=== PATIENT | female | born 1950 | race Caucasian/White ===

== ENCOUNTER 2017-02-18 04:26 | Emergency (ER) | payer MEDICARE, BC ==
[~2017-02-18] VITALS: Ht 165.1 cm; Wt 51.0 kg
[2017-02-18 04:31] VITALS: Ht 165.1 cm; Wt 51.0 kg
[2017-02-18] MEDS ORDERED: BEN25 PO (05:35)
[2017-02-18] MEDS ORDERED: DOXY100T20 PO (05:35)
--- NOTE | 2017-02-23 23:29 | ERD ---
ER Documentation Chief Complaint Date/Time DATE: 02/23/17 TIME: 23:26 Chief Complaint bug bite to left hand yesterday. +pain, +swelling HPI Patient is a 66-year-old female presenting to the emergency department with complaints of bug bite to her left hand which occurred yesterday. Associated symptoms include pain and swelling. Symptoms are worsening and constant. She states she has noticed redness spreading from her hand proximally up her left arm. She denies fevers, chills, or other symptoms at this time. ROS All systems reviewed and are negative except as per history of present illness. Medications Home Meds Active Scripts Diphenhydramine Hcl* (Benadryl*) 25 Mg Cap, 25 MG PO Q6 Y for ITCHING, #30 CAP Prov:EARLENE GARCIA PA-C 02/18/17 Doxycycline Hyclate* (Doxycycline Hyclate*) 100 Mg Tablet.dr, 100 MG PO BID for 10 Days, #20 TAB Prov:EARLENE GARCIA PA-C 02/18/17 Allergies Allergies: Coded Allergies: No Known Allergy (Unverified , 02/18/17) PMhx/Soc Medical and Surgical Hx: pt denies Medical Hx History of Surgery: Yes (Right hand surgery) Hx Alcohol Use: No Hx Substance Use: No Hx Tobacco Use: Yes Smoking Status: Current every day smoker Physical Exam Physical Exam Const: Nontoxic, well-appearing female in no acute distress. Head: Atraumatic Eyes: Normal Conjunctiva ENT: Normal External Ears, Nose and Mouth. Skin: There is some erythema with associated mild edema noted to the left hand. There is no significant lymphatic streaking or warmth noted. 2+ radial pulses. Strength and sensation is intact in the left upper extremity. Neur: Awake and alert Psych: Normal Mood and Affect Procedures/MDM 66-year-old female presents to the emergency department with complaints of bug bite to her left hand associated with swelling and redness.Physical examination is consistent with an uncomplicated cellulitis. Low suspicion for deep tissue infection, compartment syndrome, sepsis, or other emergent conditions. The patient is stable for outpatient management with a prescription for Benadryl and doxycycline. She was advised to have follow-up with her primary care physician or return to the emergency department within 48 hours for recheck. Strict ER return precautions were discussed. The patient agreed with the discharge plan a diagnosis. Departure Diagnosis: Primary Impression: Cellulitis Condition: Fair Patient Instructions: Cellulitis Referrals: [facility] YOU HAVE RECEIVED A MEDICAL SCREENING EXAM AND THE RESULTS INDICATE THAT YOU DO NOT HAVE A CONDITION THAT REQUIRES URGENT TREATMENT IN THE EMERGENCY DEPARTMENT. FURTHER EVALUATION AND TREATMENT OF YOUR CONDITION CAN WAIT UNTIL YOU ARE SEEN IN YOUR DOCTORS OFFICE WITHIN THE NEXT 1-2 DAYS. IT IS YOUR RESPONSIBILITY TO MAKE AN APPOINTMENT FOR FOLOW-UP CARE. IF YOU HAVE A PRIMARY DOCTOR --you should call your primary doctor and schedule an appointment IF YOU DO NOT HAVE A PRIMARY DOCTOR YOU CAN CALL OUR PHYSICIAN REFERRAL HOTLINE AT IF YOU CAN NOT AFFORD TO SEE A PHYSICIAN YOU CAN CHOSE FROM THE FOLLOWING [facility] [address] [facility] [address] [facility] [address] [facility] [address] [facility] [address] [facility] [address] Additional Instructions: Follow up with your PCP within the next 1-3 days for a repeat evaluation. If you require a referral to a specialist, your Primary Care Provider may be able to provide this for you. In most patient cases, a referral is not required. If you have further questions regarding this matter, please ask your Primary Care Provider. Return the the emergency department immediately if symptoms worsen or change. If you have any questions regarding medications, ask your pharmacist or us before you leave. If any adverse reactions, occur while taking your medications, discontinue the treatment and return to the emergency department immediately. If any new or worsening symptoms, uncontrolled fevers, or other unexplained symptoms occur, return to the emergency department immediately. Take your medications as directed, and complete the entire course of treatment. EARLENE GARCIA PA-C Feb 23, 2017 23:29
== END 2017-02-18 06:08 | disposition home or self-care (01) ==
LOC: FTE 04:26
DX: L03.114 Cellulitis of left upper limb (principal); F17.210 Nicotine dependence, cigarettes, uncomplicated
CPT/HCPCS: 99283